=== PATIENT | male | born 1975 | race Caucasian/White ===

== ENCOUNTER 2020-10-22 21:05 | Emergency (ER) | payer OTHER ==
[~2020-10-22] VITALS: Ht 170.2 cm; Wt 71.2 kg
--- NOTE | 2020-10-22 21:15 | NUR ---
CHEN FROM HOME WITH C/O OF DIARRHEA STARTED 2 DAYS AGO 10/20/30 + FLANK PAIN, PT IS ALERT ORIENTED X4 ABLE TO WALK, HE ALSO STATED THAT HE FEEL THE URGE TO GO TO THE BATHROOM AFTER HE DRINK WATER OR ATE HIS FOOD
--- NOTE | 2020-10-22 21:23 | NUR ---
URINE COLLECTED, SENT TO LAB.
[2020-10-22] MEDS ORDERED: IV NS 0.9% 1,000 ML BAG IV ONE (21:30)
[2020-10-22 21:31] LABS: BILIRUBIN,URINE SMALL (NEGATIVE); COLOR,URINE YELLOW (YELLOW); LEUKOCYTE ESTERASE ,URINE Negative (NEGATIVE); NITRITE, URINE Negative (NEGATIVE); PH,URINE 5.5 (5.0-8.0); PROTEIN,URINE Negative (NEGATIVE); UGLUCOSE Negative (NEGATIVE); UROBILINOGEN,URINE 0.2 EU/dL (0.2)
--- NOTE | 2020-10-22 21:35 | NUR ---
BLOOD SPECIMEN SEND TO LABS
[2020-10-22 21:36] LABS: BASOPHILS % (AUTO) 0.2 % (0.0-2.0); EOSINOPHILS % (AUTO) 0.2 % (0.0-6.0); HEMATOCRIT 44 % (39-51); HEMOGLOBIN 14.9 g/dL (13.5-17.5); LYMPHOCYTES # (AUTO) 0.5 /CMM (0.8-4.8); LYMPHOCYTES % (AUTO) 6.7 % (20.0-44.0); MEAN CORPUSCULAR HGB CONC 34 g/dl (31.0-36.0); MEAN CORPUSCULAR VOLUME 88 fL (80-96); MONOCYTES # (AUTO) 0.1 /CMM (0.1-1.30); MONOCYTES % (AUTO) 1.6 % (2.0-12.0); NEUTROPHILS # (AUTO) 7.1 /CMM (1.8-8.9); NEUTROPHILS % (AUTO) 91.3 % (43.0-81.0); PLATELET COUNT (AUTO) 163 /CMM (150-450); RED BLOOD CELL COUNT(AUTO) 4.99 MIL/uL (4.5-6.0); WHITE BLOOD COUNT (AUTO) 7.8 K/uL (4.3-11.0)
[2020-10-22 21:45] LABS: CALCIUM, SERUM 8.7 mg/dL (8.5-10.1); CREATININE 1.2 mg/dL (0.6-1.3)
--- NOTE | 2020-10-22 21:51 | NUR ---
PT RESTING COMFORTABLY. VSS.
[2020-10-22 21:52] LABS: ALBUMIN 3.8 g/dL (3.4-5.0); BILIRUBIN,DIRECT 0.1 mg/dL (0.0-0.2); BILIRUBIN,TOTAL 0.3 mg/dL (0.2-1.0)
[2020-10-22] MEDS ORDERED: METRONIDAZOLE 500 MG TABLET PO ONE (22:00)
[2020-10-22] MEDS ORDERED: DOXYCYCLINE HYCLATE (100 MG) 100 MG TABLET PO ONE (22:00)
[2020-10-22] MEDS ORDERED: DIPHENOXYLATE HCL/ATROP SULF 1 UDTAB TABLET PO ONE (22:00)
[2020-10-22] MEDS ORDERED: METRONIDAZOLE 500 MG TABLET ONE (22:04)
[2020-10-22] MEDS ORDERED: DIPHENOXYLATE HCL/ATROP SULF 1 UDTAB TABLET ONE (22:04)
[2020-10-22] MEDS ORDERED: DOXYCYCLINE HYCLATE (100 MG) 100 MG TABLET ONE (22:04)
[2020-10-22] MEDS ORDERED: DICY20TA11 PO (23:57)
[2020-10-22] MEDS ORDERED: DIPH1TAB PO (23:57)
[2020-10-22] MEDS ORDERED: ONDA4TAB5 PO (23:57)
[2020-10-23 00:30] VITALS: BP 109/54
--- NOTE | 2020-10-23 00:32 | NUR ---
Patient discharged to home in stable condition. Written and verbal after care instructions given. Patient verbalizes understanding of instruction. IV removed. Catheter intact and site benign. Pressure and 4x4 applied to site. No bleeding noted.Mr Bey ambulatory with a steady gait, steadily walking to exit, no complain of any dizziness
[2020-10-23 07:18] LABS: OCCULT BLOOD STOOL NEGATIVE (NEGATIVE)
== END 2020-10-23 00:34 | disposition home or self-care (01) ==
LOC: ER 21:10
DX: R19.7 Diarrhea, unspecified (principal); R68.83 Chills (without fever); Z79.899 Other long term (current) drug therapy
CPT/HCPCS: 36415; 80048; 80076; 81003; 82272; 83690; 85025; 87015; 87045; 87427 ×2; 87493; 89055; 96360; 99284; J7030